=== PATIENT | female | born 1945 | race Caucasian/White ===

== ENCOUNTER → 2016-07-07 | Outpatient (CLI) | payer MEDICARE ==
[~2016-07-07] MED LIST: BUSP10TA3; HYDR-3513; LIDO700A; LORA2TAB95 PO; PARO20TA53 PO; ROSU5TAB3 PO; VALP250S17; ZOLP10TA2
[2016-07-07 17:18] LABS: BASOPHILS % 1.2 % (0.0-2.0); EOSINOPHILS % 1.6 % (0.0-5.0); HEMATOCRIT. 37.2 % (36.0-48.0); HEMOGLOBIN. 12.6 g/dL (12.0-16.0); MEAN CORPUSCULAR HEMOGLOBIN 32.3 pg (28.0-32.0); MEAN CORPUSCULAR HGB CONC 33.9 g/dL (31.0-37.0); MEAN CORPUSCULAR VOLUME 95.2 fL (81.0-99.0); MEAN PLATELET VOLUME 7.4 fl (7.4-10.4); MONOCYTES % 9.9 % (2.0-8.0); NEUTROPHILS % 52.3 % (40.0-76.0); PLATELET 294 x1000/uL (130-400); RED BLOOD CELL COUNT 3.91 mill/uL (4.2-5.4); WHITE BLOOD COUNT 7.4 x1000/uL (4.5-11.0)
[2016-07-07 17:47] LABS: ALANINE AMINOTRANSFERASE 12 IU/L (13-61); ALBUMIN 3.7 g/dL (3.4-5.0); ANION GAP 11; CALCIUM 8.7 mg/dL (8.5-10.1); CARBON DIOXIDE 29 mEq/L (21-32); CHLORIDE 103 mEq/L (98-107); INDEX HEMOLYSI 1 (1-3); INDEX ICTERIC 1 (1-4); INDEX LIPEMIC 1 (1-3); T3 FREE 2.32 pg/ml (2.18-3.98); T4 FREE 1.01 ng/dL (0.76-1.46); THYROID STIMULATING HORMONE 0.86 uIU/mL (0.36-3.74); UREA NITROGEN BLOOD 14 mg/dL (7-21); eGFR > 60 mL/min (>60)
== END | disposition home or self-care (01) ==
LOC: LAB 16:45
PROVIDERS: ATTEND Internal Medicine Geriatric Medicine
DX: R63.4 Abnormal weight loss (principal)
CPT/HCPCS: 36415; 80053; 82378; 84439; 84443; 84481; 85025

== ENCOUNTER 2019-01-25 19:32 | Emergency (ER) | payer MEDICARE, MEDICAID ==
[~2019-01-25] VITALS: Ht 170.2 cm; Wt 37.2 kg
[~2019-01-25 19:32] MED LIST changes: +PARO-66 PO; -PARO20TA53 PO; +ROSU5TAB PO; -ROSU5TAB3 PO
[2019-01-25 23:48] VITALS: BP 125/81
== END 2019-01-25 23:49 | disposition home or self-care (01) ==
LOC: ER 19:32
DX: R60.0 Localized edema (principal); R06.02 Shortness of breath; R20.0 Anesthesia of skin; I10 Essential (primary) hypertension; F41.9 Anxiety disorder, unspecified; F17.200 Nicotine dependence, unspecified, uncomplicated; Z90.710 Acquired absence of both cervix and uterus
CPT/HCPCS: 99283

== ENCOUNTER 2019-04-28 14:02 | Emergency (ER) | payer MEDICARE, MEDICAID ==
[~2019-04-28] VITALS: Ht 172.7 cm; Wt 40.0 kg
[2019-04-28 14:42] VITALS: BP 147/74
== END 2019-04-28 17:48 | disposition left against medical advice (07) ==
LOC: ER 14:02
DX: R53.1 Weakness (principal); Z53.21 Procedure and treatment not carried out due to patient leaving prior to being seen by health care provider

== ENCOUNTER 2019-05-02 16:51 | Emergency (ER) | payer MEDICARE, MEDICAID ==
[~2019-05-02] VITALS: Ht 165.1 cm; Wt 45.0 kg
[2019-05-02] MEDS ORDERED: VISCOUS LIDOCAINE 2% 15 ML UDC PO ONE (18:00)
[2019-05-02] MEDS ORDERED: MAGNESIUM/ALUMINUM HYDROXIDE/SIMETHICONE 30ML UDC PO ONE (18:00)
[2019-05-02] MEDS ORDERED: ASPIRIN 81MG TABLET PO ONE (18:00)
[2019-05-02] MEDS ORDERED: KETOROLAC 15MG/ML VIAL IV ONE (18:15)
[2019-05-02 18:47] LABS: BASOPHILS % 1.2 % (0.0-2.0); EOSINOPHILS % 2.3 % (0.0-5.0); HEMATOCRIT. 35.5 % (36.0-48.0); HEMOGLOBIN. 12.2 g/dL (12.0-16.0); LYMPHOCYTES % 24.5 % (20.0-50.0); MEAN CORPUSCULAR HEMOGLOBIN 32.4 pg (28.0-32.0); MEAN PLATELET VOLUME 6.2 fl (7.4-10.4); MONOCYTES % 9.2 % (2.0-8.0); NEUTROPHILS % 62.8 % (40.0-76.0); PLATELET 381 x1000/uL (130-400); RED BLOOD CELL COUNT 3.78 mill/uL (4.2-5.4); RED CELL DISTRIBUTION WIDTH 13.3 % (11.6-14.6)
[2019-05-02 18:54] LABS: CHLORIDE 98 mEq/L (98-107)
[2019-05-02] MEDS ORDERED: HYDROCODONE/ACETAMINOPHEN 5/325MG TABLET PO ONE (23:00)
[2019-05-02 23:56] LABS: BG BASE EXCESS 3.6 mmol/L (-2.0-2.0); BG CARBOXYHEMOGLOBIN 6.1 % (0.5-1.5); BG DEOXYHEMOGLOBIN 3.4 % (0.0-5.0); BG FRACTION INSPIRED OXYGEN 28; BG HCO3 ACT 27.3 mmol/L (22.0-26.0); BG METHEMOGLOBIN 0.3 % (0.0-1.5); BG OXYGEN SATURATION 96.4 % (92.0-98.5); BG OXYHEMOGLOBIN 90.2 % (94.0-97.0); BG PCO2 37.9 mmHg (35.0-45.0); BG PH 7.475 (7.350-7.450); BG PO2 75.7 mmHg (75.0-100.0); BG SAMPLE SITE LEFT RADIAL; BG TOTAL HEMOGLOBIN 12.8 g/dL (12.0-18.0); BG VENT MODE NASAL CANNULA
[2019-05-03 01:00] VITALS: BP 133/60
== END 2019-05-03 02:12 | disposition left against medical advice (07) ==
LOC: ER 16:51 → CANBEDREQ 05-03 02:51
DX: R07.89 Other chest pain (principal); R09.02 Hypoxemia; I51.9 Heart disease, unspecified; J44.9 Chronic obstructive pulmonary disease, unspecified; G89.29 Other chronic pain; M25.551 Pain in right hip; Z90.710 Acquired absence of both cervix and uterus; Z79.899 Other long term (current) drug therapy; Z98.890 Other specified postprocedural states
CPT/HCPCS: 36415; 36600; 71045; 80053; 82375; 82805; 83880; 84484; 85025; 93005; 96374; 99284; J1885

== ENCOUNTER 2019-05-31 13:18 | Emergency (ER) | payer MEDICARE, MEDICAID ==
[~2019-05-31] VITALS: Ht 165.1 cm; Wt 54.0 kg
[2019-05-31] MEDS ORDERED: IPRATROPIUM BROMIDE (0.02%) 0.5MG/2.5ML NEB HHN STA (13:33)
[2019-05-31] MEDS ORDERED: ALBUTEROL (0.083%) 2.5MG/3ML NEB HHN STA (13:33)
[2019-05-31] MEDS ORDERED: METHYLPREDNISOLONE SOD SUCC 125 MG/2 ML VIAL IV STA (13:33)
[2019-05-31 14:02] LABS: BASOPHILS % 0.4 % (0.0-2.0); EOSINOPHILS % 0.1 % (0.0-5.0); HEMATOCRIT. 41.5 % (36.0-48.0); HEMOGLOBIN. 14.2 g/dL (12.0-16.0); LYMPHOCYTES % 12.3 % (20.0-50.0); MEAN CORPUSCULAR VOLUME 93.7 fL (81.0-99.0); MEAN PLATELET VOLUME 6.7 fl (7.4-10.4); NEUTROPHILS % 80.2 % (40.0-76.0); PLATELET 391 x1000/uL (130-400); RED BLOOD CELL COUNT 4.43 mill/uL (4.2-5.4)
[2019-05-31 14:10] LABS: CHLORIDE 99 mEq/L (98-107)
[2019-05-31] MEDS ORDERED: AZITHROMYCIN 500 MG TABLET PO ONE (14:30)
[2019-05-31] MEDS ORDERED: MAGNESIUM 2 G PREMIX 50 ML IV ONE (14:30)
[2019-05-31] MEDS ORDERED: CEFTRIAXONE 1 G PREMIX 50 ML IV ONE (14:30)
[2019-05-31 14:47] LABS: BG BASE EXCESS -0.5 mmol/L (-2.0-2.0); BG CARBOXYHEMOGLOBIN 3.3 % (0.5-1.5); BG DEOXYHEMOGLOBIN 0.9 % (0.0-5.0); BG HCO3 ACT 22.9 mmol/L (22.0-26.0); BG METHEMOGLOBIN 0.3 % (0.0-1.5); BG OXYGEN SATURATION 99.1 % (92.0-98.5); BG OXYHEMOGLOBIN 95.5 % (94.0-97.0); BG PCO2 33.8 mmHg (35.0-45.0); BG PH 7.449 (7.350-7.450); BG PO2 154.6 mmHg (75.0-100.0); BG SAMPLE SITE RIGHT BRACHIAL; BG TOTAL HEMOGLOBIN 13.5 g/dL (12.0-18.0)
[2019-05-31 15:52] LABS: ETHANOL BLOOD < 10 mg/dL
[2019-05-31] MEDS ORDERED: ACETAMINOPHEN 325MG TABLET PO PRN (17:15)
[2019-05-31] MEDS ORDERED: CEFTRIAXONE 1 G PREMIX 50 ML IV SCH (17:15)
[2019-05-31] MEDS ORDERED: ENOXAPARIN 40MG/0.4ML SYR SUBCUT SCH (17:15)
[2019-05-31] MEDS ORDERED: AZITHROMYCIN 500 MG in DEXT 5% WATER 250 ML IV SCH (17:15)
[2019-05-31] MEDS ORDERED: GUAIFENESIN 200MG/10ML SUGAR FREE UDC PO PRN (17:15)
[2019-05-31] MEDS ORDERED: IPRATROPIUM/ALBUTEROL 0.5-3(2.5)MG/3ML NEB NEB PRN (17:15)
[2019-05-31] MEDS ORDERED: ONDANSETRON HCL 4MG/2ML INJ IV PRN (17:15)
[2019-05-31] MEDS ORDERED: CLONIDINE 0.1MG TABLET PO PRN (17:15)
[2019-05-31] MEDS ORDERED: NA PHOS,M-B/NA PHOS,DI-BA ENEMA 118ML PR PRN (17:15)
[2019-05-31 17:51] LABS: CHLORIDE 97 mEq/L (98-107)
[2019-05-31 20:33] LABS: *AMPHETAMINES SCREEN URINE NEGATIVE (NEGATIVE); *BARBITURATES SCREEN URINE NEGATIVE (NEGATIVE)
[2019-05-31 20:34] LABS: *BENZODIAZEPINES SCREEN URINE NEGATIVE (NEGATIVE); *COCAINE SCREEN URINE NEGATIVE (NEGATIVE); CANNABINOID URINE SCREEN NEGATIVE (NEGATIVE); METHADONE URINE SCREEN NEGATIVE (NEGATIVE); OPIATES URINE SCREEN NEGATIVE (NEGATIVE); PHENCYCLIDINE URINE SCREEN NEGATIVE (NEGATIVE)
[2019-05-31 21:15] VITALS: BP 112/61
== END 2019-05-31 21:19 | disposition left against medical advice (07) ==
LOC: ER 13:18 → CANBEDREQ 22:36
DX: R06.02 Shortness of breath (principal); R91.8 Other nonspecific abnormal finding of lung field; R09.02 Hypoxemia; F17.290 Nicotine dependence, other tobacco product, uncomplicated; J44.9 Chronic obstructive pulmonary disease, unspecified; Z90.710 Acquired absence of both cervix and uterus; Z79.899 Other long term (current) drug therapy
CPT/HCPCS: 36415; 36600; 71045; 80048; 80053; 80305; 80320; 82375; 82805; 83690; 83880; 84484; 85025; 87040; 93005; 94644; 96365; 96368; 96375; 99285; 99406; J0696; J2930; J3475; G0480